=== PATIENT | female | born 1990 | race African-American/Black ===

== ENCOUNTER 2017-10-12 12:16 | Emergency (ER) | payer SELFPAY | END 2017-10-12 13:08 | disposition home or self-care (01) | LOC: SCSER 12:16 | DX: J32.9 Chronic sinusitis, unspecified (principal) | CPT/HCPCS: 99283 ==

== ENCOUNTER 2018-05-19 07:39 | Emergency (ER) | payer SELFPAY | END 2018-05-19 09:35 | disposition home or self-care (01) | LOC: ERS 07:39 | DX: J01.90 Acute sinusitis, unspecified (principal); J30.9 Allergic rhinitis, unspecified | CPT/HCPCS: 99283 ==

== ENCOUNTER 2018-06-10 14:43 | Emergency (ER) | payer SELFPAY ==
[2018-06-10 14:59] LABS: Bilirubin Negative (Negative); Blood, Urine Negative (Negative); Clarity Slightly Cloudy (Clear); Glucose, Urine (Dipstick) Negative (Negative); Leukocyte Negative (Negative); Nitrite Negative (Negative); Protein, Urine (Dipstick) Negative (Neg-Trace); Specific Gravity, Urine 1.025 (1.005-1.030); pH, Urine 6.5 (5.0-9.0)
[2018-06-10 15:00] LABS: Pregu Control Background? CLEAR/WHITE (CLR/WHITE); Pregu Control Bar Appear? YES (CONTROL BAR); Specific Gravity 1.025 (1.002-1.036)
[2018-06-10 15:01] LABS: Pregnancy Test - Urine (BHCG) Negative (Negative)
[2018-06-12 23:15] LABS: Chlamydia by PCR Not Detected (NotDetected); GC by PCR Not Detected (NotDetected)
== END 2018-06-10 15:25 | disposition home or self-care (01) ==
LOC: SCSER 14:43
DX: R30.0 Dysuria (principal)
CPT/HCPCS: 81003; 81025; 87480; 87491; 87510; 87591; 87660; 99283

== ENCOUNTER 2018-10-29 08:40 | Emergency (ER) | payer SELFPAY ==
[2018-10-29 11:46] LABS: Pregnancy Test - Urine (BHCG) Negative (Negative); Pregu Control Background? CLEAR/WHITE (CLR/WHITE); Pregu Control Bar Appear? YES (CONTROL BAR); Specific Gravity 1.022 (1.002-1.036)
[2018-10-29] MEDS ORDERED: Metoclopramide HCl 10 MG/2 ML VIAL ONE (11:48)
[2018-10-29] MEDS ORDERED: diphenhydrAMINE 50 MG/ML VIAL ONE (11:48)
[2018-10-29] MEDS ORDERED: Ketorolac Tromethamine 60 MG/2 ML VIAL ONE (12:29)
== END 2018-10-29 13:20 | disposition home or self-care (01) ==
LOC: ERS 08:40
DX: R51 Headache (principal); F41.9 Anxiety disorder, unspecified; F32.9 Major depressive disorder, single episode, unspecified
CPT/HCPCS: 81025; 96372; J1200; J1885; J2765

== ENCOUNTER 2020-09-06 15:01 | Emergency (ER) | payer MEDICAID, SELFPAY | END 2020-09-06 16:15 | disposition home or self-care (01) | LOC: ERS 15:01 | DX: J30.9 Allergic rhinitis, unspecified (principal); Z20.828 Contact with and (suspected) exposure to other viral communicable diseases | CPT/HCPCS: 99283 ==

== ENCOUNTER 2020-09-08 12:18 | Emergency (ER) | payer OTHER, SELFPAY | END 2020-09-08 12:59 | disposition home or self-care (01) | LOC: ERS 12:18 | DX: J01.90 Acute sinusitis, unspecified (principal) | CPT/HCPCS: 99283 ==

== ENCOUNTER 2021-02-27 17:03 | Emergency (ER) | payer OTHER ==
[2021-02-27] MEDS ORDERED: Acetaminophen 500 MG TAB ONE (19:30)
[2021-02-27 20:24] LABS: SARS-CoV-2 NAA Rapid Test DETECTED (NotDetected)
== END 2021-02-27 20:39 | disposition home or self-care (01) ==
LOC: ERS 17:03
DX: U07.1 COVID-19 (principal)
CPT/HCPCS: 0240U; 99283

== ENCOUNTER 2021-03-04 03:31 | Emergency (ER) | payer OTHER | END 2021-03-04 05:24 | disposition home or self-care (01) | LOC: ERS 03:31 | DX: U07.1 COVID-19 (principal); R10.9 Unspecified abdominal pain; Z79.899 Other long term (current) drug therapy | CPT/HCPCS: 96372; 99283; J0500 ==

== ENCOUNTER 2021-05-02 07:39 | Emergency (ER) | payer OTHER ==
[2021-05-02 12:32] LABS: SARS-CoV-2 PCR by NAA Not Detected (NotDetected)
== END 2021-05-02 08:35 | disposition home or self-care (01) ==
LOC: ERS 07:39
DX: J02.9 Acute pharyngitis, unspecified (principal); R09.81 Nasal congestion; R05 Cough; Z20.822 Contact with and (suspected) exposure to COVID-19
CPT/HCPCS: 99283; U0003; U0005

== ENCOUNTER 2021-09-21 08:14 | Emergency (ER) | payer MEDICAID, OTHER, SELFPAY ==
[2021-09-21 09:20] LABS: #Eosinphils 0.1 thou/uL (0.0-0.7); #Lymphocytes 1.2 thou/uL (1.20-3.40); #Monocytes 0.4 thou/uL (0.11-0.59); #Neutrophils 3.5 thou/uL (1.40-6.50); %Basophils 0.2 % (0.0-1.0); %Eosinophils 2.5 % (0.0-10.0); %Lymphocytes 23.5 % (21.0-51.0); %Monocytes 7.9 % (0.0-10.0); %Neutrophils 65.9 % (42.0-75.0); Hemoglobin 12.5 g/dL (12.0-16.0); Mean Corpuscular HGB CONC 32.4 g/dL (32.0-36.0); Mean Corpuscular Hemoglobin 30.1 pg (27.0-31.0); Mean Corpuscular Volume 92.9 fL (78.0-98.0); Mean Platelet Volume 8.9 fL (7.4-10.4); Platelet Count 196 thou/uL (130-400); RBC Distribution Width 11.9 % (11.5-14.5); Red Blood Cell (RBC) Count 4.15 mill/uL (4.20-5.40); White Blood Cell (WBC) Count 5.2 thou/uL (4.8-10.8)
[2021-09-21 09:40] LABS: ALT (SGPT) 13 U/L (8-55); AST (SGOT) 12 U/L (5-34); Albumin 3.8 g/dL (3.5-5.0); Alkaline Phosphatase 71 U/L (40-110); Anion Gap 15 mmol/L (10-20); BUN (Urea Nitrogen) 6 mg/dL (7.0-18.7); Bilirubin, Total 0.2 mg/dL (0.2-1.2); Calc. Creatinine Clearance 0 mL/min (70-130); Calcium 9.1 mg/dL (7.8-10.44); Carbon Dioxide 17 mmol/L (22-29); Chloride 105 mmol/L (98-107); Globulin 3.4 g/dL (2.4-3.5); Glucose 86 mg/dL (70-105); Potassium 3.7 mmol/L (3.5-5.1); Protein, Total 7.2 g/dL (6.0-8.3); Sodium 133 mmol/L (136-145)
[2021-09-21 17:04] LABS: SARS-CoV-2 PCR by NAA DETECTED (NotDetected)
== END 2021-09-21 12:20 | disposition home or self-care (01) ==
LOC: ERS 08:14
DX: O98.511 Other viral diseases complicating pregnancy, first trimester (principal); U07.1 COVID-19; Z3A.09 9 weeks gestation of pregnancy; O99.891 Other specified diseases and conditions complicating pregnancy; R10.9 Unspecified abdominal pain
CPT/HCPCS: 36415; 76856; 80053; 84702; 85025; 86900; 86901; 93976; U0003; U0005

== ENCOUNTER 2023-03-13 21:11 | Emergency (ER) | payer OTHER | END 2023-03-13 21:49 | disposition home or self-care (01) | LOC: ERS 21:11 | DX: J01.90 Acute sinusitis, unspecified (principal) | CPT/HCPCS: 99283 ==